=== PATIENT | female | born 1990 | race Caucasian/White ===

== ENCOUNTER 2025-01-13 07:46 | Outpatient (CLI) | payer OTHER, SELFPAY ==
--- OUTSIDE RECORDS SUMMARY | 2025-01-13 08:00 | XMS_ITS | Data Portability ---
Author Organization [facility] [place] Address [address] [place] [address] Care Team Providers Care Physical Education Aide Name Role Phone SUNNY FELIX Primary Care Provider [phone] Assessment No assessment recorded. Plan of Treatment Reminders Order Date Submit Date Provider Last Modified By Organization Details Last Modified Time Details Appointments SURG Salpingec chai 2024 10:30A Eduar HIGHTOWER MD Not available Not available Not available SURG POST OP 2024 03:15P Eduar HIGHTOWER MD Not available Not available Not available Lab None recorded. Referral None recorded. Procedures None recorded. Surgeries salpingec chai, laparosco pic (SURG) 01/20/ 025 [facility], [facility] [address], [address], 12/14/2024 16:35:58 Imaging None recorded. Medication Orders None recorded. Patient TargetsNo targets recorded. Patient InstructionsNo instructions recorded. Reason for Referral None Reported. Procedures Surgical History Date Name Laterality Status Provider Name and Address Organization Details Recorded Time Date of Last Pap Smear completed [facility] 12/09/2024 17:15:12 Orthopedic Surgery completed [facility] 12/09/2024 17:15:12 Imaging Results None recorded. Procedure Notes None recorded. Medical Equipment None Reported. Allergies Allergen ID Allergen Name Allergen Category Reaction Reaction Severity Criticality Documentation Date Start Date Code Code System Note Provider Name and Address Organization Details Recorded Time 28053 Product containin g penicilli n (product) medicatio n anaphylax is severe Not available 12/09/20242004 05583 8001 SNOMED Darlyn Andrade [facility] 17:15:12 18690 Penicilli n Not available anaphylax is severe Not available 12/09/2024 29053 RxNorm Darlyn Andrade [facility] 17:15:12 Medications Name Sig Start Date Stop Date Status Note LastModified by Organization Details LastModified Time metformin 500 mg tablet 12/09 completed Not Available Not Available Not Available lisinopril 20 mg-hydrochl orothiazide 12.5 mg tablet TAKE 1 TABLET BY MOUTH EVERY DAY 12/09 completed Not Available Not Available Not Available lisinopril 20 mg tablet TAKE 1 TABLET BY MOUTH EVERY DAY 2024 active Not Available Not Available Not Avai lable doxycycline monohydrate 100 mg capsule TAKE 1 CAPSULE BY MOUTH TWICE A DAY FOR 7 DAYS 12/09 completed Not Available Not Available Not Available lisinopril 20 mg-hydrochl orothiazide 25 mg tablet TAKE ONE TABLET BY MOUTH DAILY FOR HYPERTENS ION active Not Available Not Available No t Available metformin ER 500 mg tablet,exte nded release 24 hr TAKE 1 TABLET BY MOUTH TWICE A DAY active Not Available Not Available No t Available Vitals Date Recorded Body height Body mass index (BMI) Body weight Systolic blood pressure Diastolic blood pressure Provider Name and Address Organization Details Last Updated DateTime 12/09/2024 147.32 cm 60 kg/m2 943626.0 1 g 150 mm[Hg] 95 mm[Hg] Darlyn Andrade [facility] 17:14:39 Social History Question Answer Notes LastModified by Organizat ion Details LastModified Time Do You Have An Advance Directive? No [email or web address] Information n ot available 12/09/2024 What Is Your Level Of Alcohol Consumption? None [email or web address] Information not available 12/09/2024 Are You Blind Or Do You Have Difficulty Seeing? No Information n ot available 12/09/2024 What Is Your Level Of Caffeine Consumption? Occasional [email or web address] Information not available 12/09/2024 How Much Tobacco Do You Chew? None [email or web address] Information not available 12/09/2024 In The 14 Days Before Symptom Onset, Have You Had Close Contact With A Laboratory-confirm ed COVID-19 While That Case Was Ill? No [email or web address] Information n ot available 12/09/2024 In The 14 Days Before Symptom Onset, Have You Had Close Contact With A Person Who Is Under Investigation For COVID-19 While That Person Was Ill? No [email or web address] Information not available 12/09/2024 Have You Been To An Area Known To Be High Risk For COVID-19? No Information not available 12/09/2024 Are You Deaf Or Do You Have Serious Difficulty Hearing? No Information not available 12/09/2024 What Type Of Diet Are You Following? REGULAR [email or web address] Information n ot available 12/09/2024 What Is The Highest Grade Or Level Of School You Have Completed Or The Highest Degree You Have Received? 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 No [email or web address] Information not available 12/09/2024 Do You Use Protection During Sex? Always [email or web address] Information not available 12/09/2024 Do You Use Your Seat Belt Or Car Seat Routinely? Yes [email or web address] Information not available 12/09/2024 Do You Have Smoke And Carbon Monoxide Detectors In Your Home? Yes [email or web address] Information not available 12/09/2024 How Much Tobacco Do You Smoke? No [email or web address] Information not available 12/09/2024 Do You Feel Stressed (tense, Restless, Nervous, Or Anxious, Or Unable To Sleep At Night)? FH1977-0 [email or web address] Information not available 12/09/2024 Do You Use Any Illicit Or Recreational Drugs? No [email or web address] Information not available 12/09/2024 Do You Use Sunscreen Routinely? Yes [email or web address] Information not available 12/09/2024 Have You Used IV Drugs? No [email or web address] Information not available 12/09/2024 Sex: Unknown Functional Status Question Answer Note LastModified by Organizat ion Details LastModified Time Are you able to walk? YESWOREST [email or web address] Information not available 12/09/2024 What is your exercise level? Occasional [email or web address] Information not available 12/09/2024 Mental Status None recorded. Family History Relationship Description Onset Age of this Age Resolved Age Notes LastModified by Organization Details LastModified Time Paternal Uncle Myocardial infarction [email or web address] Not available 12/09 17:15:12 Maternal Uncle Myocardial infarction Not available 12/09 17:15:12 Maternal Uncle Diabetes mellitus [email or web address] Not available 2024 17:15:12 Father Myocardial infarction [email or web address] Not available 12/09 17:15:12 Father Depressive disorder [email or web address] Not available 2024 17:15:12 Father Heart disease [email or web address] Not available 2024 17:15:12 Paternal Grandmother Malignant tumor of breast Not available 2024 17:15:12 Paternal Grandmother Malignant neoplasm of ovary [email or web address] Not available 2024 17:15:12 Mother Myocardial infarction [email or web address] Not available 12/09 17:15:12 Mother Malignant tumor of breast [email or web address] Not available 2024 17:15:12 Mother Depressive disorder [email or web address] Not available 2024 17:15:12 Mother Pre-eclampsi a [email or web address] Not available 2024 17:15:12 Mother Heart disease Not available 2024 17:15:12 Mother Diabetes mellitus Not available 2024 17:15:12 Maternal Aunt Myocardial infarction [email or web address] Not available 12/09 17:15:12 Maternal Aunt Diabetes mellitus [email or web address] Not available 2024 17:15:12 Maternal Grandmother Myocardial infarction Not available 12/09 17:15:12 Maternal Grandmother Malignant tumor of breast [email or web address] Not available 2024 17:15:12 Maternal Grandmother Heart disease [email or web address] Not available 2024 17:15:12 Maternal Grandmother Diabetes mellitus [email or web address] Not available 2024 17:15:12 Sister Pre-eclampsi a [email or web address] Not available 2024 17:15:12 Sister Diabetes mellitus [email or web address] Not available 2024 17:15:12 Maternal Grandfather Myocardial infarction [email or web address] Not available 12/09 17:15:12 Maternal Grandfather Heart disease [email or web address] Not available 2024 17:15:12 Medical History Condition Response Acid Reflux (GERD) Y Hypertension Y Gynecological History Statement/Question Response Abnormal Pap Y Date of LMP On BCP's at Conception? N N Was last menstrual period normal Y STIs/STDs N HPV Vaccine N Duration of Flow (days) 6 Current Control Method Implant Date of control 11/21/2022 Frequency of Cycle (Q days) 25 Sexually Active? Y Unknown Age of first menstrual cycle 10 Date of Last Pap Smear 10/10/2022 Sexual Problems? N Desired Control Method Hysterectom y LMP Unknown N Obstetrics History GPAL:G 0 P 0 0 0 0 Past Encounters Encounter ID Performer Location Encounter Start Date Encounter Closed Date Diagnosis/Indication Diagnosis SNOMED-CT Code Diagnosis ICD10 Code Diagnosis Note [id number] Jake Hightower MD [place] [address] [address] 12/09/2024 16:29:30 12/10/2024 10:34:38 Female sterilization 44126719 Z30.2 This patient presents for female sterilizat ion. The patient desires tubal ligation. She is certain that she no longer wants to be fertile. We discussed sterilizat ion in detail. I described the procedure to the patient in detail. I informed her that we remove the tubes entirely in a. We discussed alternativ es. The patient knows they are highly effective reversible options. She understand s that the Salpingect dick n is permanent. We discussed failure rate. She understand s there is reported failure rate to salpingect dick.. As described salpingect dick and removal of the entire tube. I discussed the reduction in ovarian cancer risk. The patient understand s and is ready to proceed with laparoscop ic bilateral tubal ligation. She understand s the tubes We will be removed. She return for informed consent process. Her surgery will be scheduled. I spent more than 30 minutes on this patient's care in total. We agreed to perform surgery. Health Concerns Section Related Observation LastModified by Organization Detai ls LastModified Time None Recorded Concern Status LastModified by Organization Details LastModified Time None Recorded Advance Directives Directive N: Payers Encounter Date Sequence Insurance Name Policy Number Policy Ruvalcaba Covered Member ID Ruvalcaba Member ID Guarantor Name 12/09/2024 1 [employer]EF[employer] (PPO) [id number] Priyanka Nice [id number] Priyanka Nice Notes Date Note Type Note Provider Name and Address Organization Details Recorded Time 12/09/2024 text/html This patient presents for female sterilization. The patient desires tubal ligation. She is certain that she no longer wants to be fertile. We discussed sterilization in detail. I described the procedure to the patient in detail. I informed her that we remove the tubes entirely in a. We discussed alternatives. The patient knows they are highly effective reversible options. She understands that the Salpingectomy n is permanent. We discussed failure rate. She understands there is reported failure rate to salpingectomy.. As described salpingectomy and removal of the entire tube. I discussed the reduction in ovarian cancer risk. The patient understands and is ready to proceed with laparoscopic bilateral tubal ligation. She understands the tubes We will be removed. She return for informed consent process. Her surgery will be scheduled. Jake Hightower MD [address], [place], [address], [facility] 12/10/2024 10:14:08 OBGyn Episode No OBEpisode recorded.
--- OUTSIDE RECORDS SUMMARY | 2025-01-13 08:00 | XMS_ITS | Clinical Summary ---
Author Organization [facility] Address [address] [place] [address] Phone Care Team Providers Care Supervisor Cemetery Workers Name Role Phone Boubacar Jacquelin Christ MONTESINOS CNP Primary Care Provider [phone] Allergies Active Allergy Reactions Criticality Noted Date Comments Penicillins Other (see Comments) 11/20/2024 Medications VITAMIN E PO Take 1,000 mL by mouth once. Active famotidine (PEPCID) 20 MG Tablet Take 20 mg by mouth 2 times daily. Active etonogestrel (NEXPLANON) 68 MG Implant by Subcutaneous route once. Active metFORMIN (GLUCOPHAGE-XR) 500 MG TABLET SR 24 HR Take 1 Tablet by mouth 2 times daily. 90 Tablet 5 Active lisinopril (PRINIVIL, ZESTRIL) 20 MG Tablet Take 1 Tablet by mouth daily. 90 Tablet 5 Active lisinopril-hydr oCHLOROthiazide (PRINZIDE, ZESTORETIC) 20-12.5 MG Tablet Take 1 Tablet by mouth daily. 90 Tablet 5 Active Active Problems No known active problems Encounters Date Type Department Care Team Description 12/28/2024 Results Follow-Up [facility] - Family [facility] [address] [place] [address] Boubacar Jacquelin Christ, HANANE MONTESINOS LIPID PANEL, HEMOGLOBIN A1C W/ ESTIMATED GLUCOSE, THYROXINE (T4) FREE, Additional followed-up results: 4 12/23/2024 Travel 12/11/2024 [facility]ill [facility] [address] [place] [phone] Jacquelin Hamlin APRN, CNP Medication Refill 11/20/2024 10:30 AM CDT [facility] [place] [address] Jacquelin Hamlin APRN, HANANE Encounter for preventative adult health care exam with abnormal findings (Primary Dx); Gastroesophageal reflux disease with esophagitis without hemorrhage; Primary hypertension; Class 3 severe obesity with body mass index (BMI) of 60.0 to 69.9 in adult, unspecified obesity type, unspecified whether serious comorbidity present (HCC) Discharge Disposition: Discharged to home or Selfcare 11/20/2024 Travel 11/09/2024 [facility] [place] [address] Jacquelin Hamlin, HANANE MONTESINOS from Last 3 Months Immunizations Immunization Administration Dates Next Due DTP Vaccine 05/11/1994, 3,09/11/1991,1990,03/27/1991 Hib Vaccine,unspecified Formulation 09/11/1991,1 ,03/27/1991 Influenza,Split Virus,Trivalent,Injectable,PF 11/20/2024 MMR Vaccine 05/11/1994,09/11/1991 OPV 05/11/1994, 3,09/11/1991,1990,03/27/1991 Family History Medical History Relation Name Comments Hypertension Father Diabetes Mother Diabetes Sister Hypertension Sister Relation Name Status Comments Father Maternal Grandfather Maternal Grandmother Mother Paternal Grandfather Paternal Grandmother Sister Alive Social History Tobacco Use Types Packs/Day Years Used Date Smoking Tobacco: Never Smokeless Tobacco: Never Tobacco Cessation:Counseling Given: No PHQ-2 Answer Date Recorded Total Score - Questions 1-9 0 11/07 Sexually Active Control Partners Comments Yes Other Male Comments Unknown Sex and Gender Information Value Date Recorded Sex Assigned at Not on file Legal 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 Gender Identity Not on file Sexual Orientation Not on file Last Filed Vital Signs Vital Sign Reading Time Taken Comments Blood Pressure 130/80 11/20/2024 10:30 AM CDT Pulse 92 11/20/2024 10:30 AM CDT Temperature 36.3 C (97.3 F) 11/20/2024 10:30 AM CDT Respiratory Rate 16 11/20/2024 10:30 AM CDT Oxygen Saturation 99% 11/20/2024 10:30 AM CDT Inhaled Oxygen Concentration - - Weight 131.1 kg (289 lb) 11/20/2024 10:30 AM CDT Height 147.3 cm (4' 10 ) 11/20/2024 10:30 AM CDT Body Mass Index 60.4 11/20/2024 10:30 AM CDT Plan of Treatment Upcoming Encounters Date Type Department Care Team (Late st Contact Info) Description 05/24/2025 2:30 PM CDT Office Visit [facility] - Family [facility] [address] [place] [address] Boubacar, Jacquelin N, VP RESEARCH, PIPE CONNECTOR 2 [facility] [place] [place] [address] Health Maintenance Due Date Last Done Comments Hepatitis C Virus (HCV) Screening 1990 DTaP/Tdap/Td Immunization (5 - Tdap) 1997 05/11/1994, 09/21/1992, 09/11/1991, Additional history exists Hepatitis B Immunization (1 of 3 - 19+ 3-dose series) 2009 Pap Smear 2011 HPV/Cotest 2020 SARS-COV-2 Immunization ( season) 2024 Cervical Cancer Screening (CCS) 01/07/2027 Postponed from 2020 (Provider Discretion) Respiratory Syncytial Virus (RSV) Immunization (Adult) (1 - 1-dose 75+ series) 2065 Influenza Immunization Completed 11/20/2024 Human Papillomavirus (HPV) Immunization Aged Out No longer eligible based on patient's age to complete this topic Meningococcal Immunization (ACWY) Aged Out No longer eligible based on patient's age to complete this topic Pneumococcal Immunization Combined Aged Out No longer eligible based on patient's age to complete this topic Rotavirus Immunization Aged Out No lo nger eligible based on patient's age to complete this topic Procedures Procedure Name Priority Date/Time Associated Diagnosis Comments CBC WITH AUTO DIFFERENTIAL Routine 12/23/2024 8:08 AM CDT Encounter for preventative adult health care exam with abnormal findings THYROID SCREEN WITH REFLEX Routine 12/23/2024 8:08 AM CDT Encounter for preventative adult health care exam with abnormal findings VITAMIN D, 25 HYDROXY TOTAL Routine 12/23/2024 8:08 AM CDT Encounter for preventative adult health care exam with abnormal findings COMPLETE BLOOD COUNT (CBC) WITH DIFF Routine 12/23/2024 8:08 AM CDT Encounter for preventative adult health care exam with abnormal findings CMP (COMPREHENSIVE METABOLIC PANEL) Routine 12/23/2024 8:08 AM CDT Encounter for preventative adult health care exam with abnormal findings THYROXINE (T4) FREE Routine 12/23/2024 8 :08 AM CDT Encounter for preventative adult health care exam with abnormal findings HEMOGLOBIN A1C W/ ESTIMATED GLUCOSE Routine 12/23/2024 8:08 AM CDT Gastroesophageal reflux disease with esophagitis without hemorrhage LIPID PANEL Routine 12/23/2024 8:08 AM CDT Encounter for preventative adult health care exam with abnormal findings THYROID SCREEN WITH REFLEX Routine 12/23/2024 8:08 AM CDT Encounter for preventative adult health care exam with abnormal findings from Last 3 Months Results * VITAMIN D, 25 HYDROXY TOTAL (12/23/2024 8:08 AM CDT) VITAMIN D, 25 HYDROX 21.3 ng/mL 12/23/2024 10:46 AM CDT [facility] Blood Venipuncture / Unknown 12/23/2024 8:08 AM CDT 12/23/2024 9:23 AM CDT N[facility]ative [facility] - 12/23/2024 10:46 AM CDT Published reference ranges for Vitamin D vary depending on time and place and method of testing, and on patient's age, sex, ethnicity and levels of other measured analytes such as parathormone, calcium and phosphorus. The result should be evaluated in conjunction with clinical findings and suspicions. [place] [employer] and Endocrine Clinical Practice Guidelines: Status Vitamin D levels (ng/mL) Deficient <=20 At risk of inadequacy 21-29 Sufficient 30-100 Centers of Disease Control and Prevention Guidelines: Status Vitamin D levels (ng/mL) Deficient <13 At risk of inadequacy 13-19 Sufficient 20-50 Possibly harmful >50 References: [place] [employer], 2010 Dietary reference intakes for calcium and vitamin D. [place]: The National AcademResearch & Innovation Press. Gabriela M, Aleks N, Michael PEPPER, et al., Evaluation, treatment, and prevention of Vitamin D deficiency: an Endocrinology Clinical Practice Guideline. JCEM 2011 96: 7 0887-8087. Brandt A, Ke C, Benja D, et al., Vitamin D Status: [place], 3185-4559, [facility] data brief, no. 59, MD [place]: National Center for Health Statistics. 2011. December N Boubacar MONTESINOS, PIPE CONNECTOR CHEMISTRY ORDERABLES Radhika l Result Performing Organization Address City/[facility] Co de Phone Number [facility] [address] [place] [address] * THYROID SCREEN WITH REFLEX (12/23/2024 8:08 AM CDT) TSH 2.107 0.300 - 5.000 mIU/L 12/23/2024 10:47 AM CDT [facility] Blood Venipuncture / Unknown 12/23/2024 8:08 AM CDT 12/23/2024 9:24 AM CDT December Boubacar MIXONN, PIPE CONNECTOR CHEMISTRY ORDERABLES Radhika l Result Performing Organization Address City/[facility]/ZIP Co de Phone Number [facility] [address] [place] [address] * HEMOGLOBIN A1C W/ ESTIMATED GLUCOSE (12/23/2024 8:08 AM CDT) Pathologist [facility] HGB-A1C 5.5 4.0 - 6.0 % 12/23/2024 10:02 AM CDT [facility] Est Average Glucose 111.2 mg/dL 12/23/2024 10:02 AM CDT [facility] Blood Venipuncture / Unknown 12/23/2024 8:08 AM CDT 12/23/2024 9:23 AM CDT Narrative [facility] - 12/23/2024 10:02 AM CDT HEMOGLOBIN A1C: DIABETIC PATIENTS: WELL-CONTROLLED: 6.2 - 7.0 INTERMEDIATE WELL-CONTROLLED: 7.0 - 9.0 POORLY-CONTROLLED: >9.0 Specimens containing greater than 5% of Hemoglobin F may result in lower than expected % HbA1C results. December N Oehl VP RESEARCH, PIPE CONNECTOR CHEMISTRY ORDERABLES Radhika l Result Performing Organization Address City/[facility]/ZIP Co de Phone Number [facility] [address] [place] [address] * (ABNORMAL) CBC WITH AUTO DIFFERENTIAL (12/23/2024 8:08 AM CDT) Pathologist [facility] WBC 11.11 4.00 - 12.00 10(3)/mcL 12/23/2024 9:42 AM CDT [facility] RBC 4.93 3.80 - 5.30 10(6)/mcL 12/23/2024 9:42 AM CDT [facility] HEMOGLOBIN (HGB) 14.4 12.0 - 15.8 g/dL 12/23/2024 9:42 AM CDT [facility] HEMATOCRIT (HCT) 42.2 36.0 - 47.0 % 12/23/2024 9:42 AM CDT [facility] MCV 85.6 82.0 - 96.0 fL 12/23/2024 9:42 AM CDT [facility] MCH 29.2 26.0 - 34.0 pg 12/23/2024 9:42 AM CDT [facility] MCHC 34.1 31.0 - 36.0 g/dL 12/23/2024 9:42 AM CDT [facility] PLATELET COUNT 343 140 - 440 10(3)/mcL 12/23/2024 9:42 AM CDT [facility] RDW 13.0 11.8 - 15.5 % 12/23/2024 9:42 AM CDT [facility] MPV 10.1 9.7 - 12.4 fL 12/23/2024 9:42 AM CDT [facility] NEUTROPHILS 59.9 47.0 - 73.0 % 12/23/2024 9:42 AM CDT [facility] LYMPHOCYTES 31.1 18.0 - 42.0 % 12/23/2024 9:42 AM CDT [facility] MONOCYTES 6.4 4.0 - 12.0 % 12/23/2024 9:42 AM CDT [facility] EOSINOPHILS 2.1 0.0 - 5.0 % 12/23/2024 9:42 AM CDT [facility] BASOPHILS 0.5 0.0 - 1.0 % 12/23/2024 9:42 AM CDT [facility] ABSOLUTE NEUTROPHILS 6.66 1.60 - 7.70 10(3)/mcL 12/23/2024 9:42 AM CDT [facility] ABSOLUTE LYMPHOCYTES 3.45(H) 1.30 - 3.20 10(3)/mcL 12/23/2024 9:42 AM CDT [facility] ABSOLUTE MONOCYTES 0.71 0.20 - 1.00 10(3)/mcL 12/23/2024 9:42 AM CDT [facility] ABSOLUTE EOSINOPHIL 0.23 0.00 - 0.40 10(3)/mcL 12/23/2024 9:42 AM CDT [facility] ABSOLUTE BASOPHILS 0.06 0.00 - 0.10 10(3)/mcL 12/23/2024 9:42 AM CDT [facility] NRBC PER 100 WBC 0 12/24/19 9:42 AM CDT [facility] Blood Venipuncture / Unknown 12/23/2024 8:08 AM CDT 12/23/2024 9:23 AM CDT December N Boubacar MONTESINOS PIPE CONNECTOR HEMATOLOGY ORDERABLES Fin al Result [facility] [address] [place] [address] * THYROXINE (T4) FREE (12/23/2024 8:08 AM CDT) T4 FREE 0.9 0.7 - 1.9 ng/dL 12/23/2024 10:42 AM CDT [facility] Blood Venipuncture / Unknown 12/23/2024 8:08 AM CDT 12/23/2024 9:23 AM CDT december N Boubacar MONTESINOS PIPE CONNECTOR CHEMISTRY ORDERABLES Radhika l Result [facility] [address] [place] [address] * (ABNORMAL) LIPID PANEL (12/23/2024 8:08 AM CDT) CHOLESTEROL 166 <200 mg/dL 12/23/2024 10:25 AM CDT [facility] TRIGLYCERIDES 170(H) <150 mg/dL 12/23/2024 10:25 AM CDT [facility] HDL CHOLESTEROL 43 >40 mg/dL 10:25 AM CDT [facility] LDL 89 <130 mg/dL 12/23/2024 10:25 AM CDT [facility] VLDL 34 10 - 50 mg/dL 12/23/2024 10:25 AM CDT [facility] CHOL/HDL RATIO 3.9 0.0 - 4.4 12/23/2024 10:25 AM CDT [facility] NON-HDL CHOLESTEROL 123 <130 mg/dL 12/23/2024 10:25 AM CDT [facility] IS THE PATIENT REQUIRED TO BE FASTING? Yes 12/23/2024 10:25 AM CDT [facility] HAS THE PATIENT BEEN FASTING? Yes 12/23/2024 10:25 AM CDT [facility] Blood Venipuncture / Unknown 12/23/2024 8:08 AM CDT 12/23/2024 9:23 AM CDT december Oehl VP RESEARCH, PIPE CONNECTOR CHEMISTRY ORDERABLES Radhika l Result [facility] [address] [place] [address] * CMP (COMPREHENSIVE METABOLIC PANEL) (12/23/2024 8:08 AM CDT) SODIUM 137 136 - 145 mmol/L 12/23/2024 10:25 AM CDT [facility] POTASSIUM 4.0 3.5 - 5.1 mmol/L 12/23/2024 10:25 AM CDT [facility] CHLORIDE 107 98 - 107 mmol/L 12/23/2024 10:25 AM CDT [facility] CO2, VENOUS 23 22 - 30 mmol/L 12/23/2024 10:25 AM CDT [facility] ANION GAP 11.0 <18.0 mmol/L 12/23/2024 10:25 AM CDT [facility] GLUCOSE 85 70 - 99 mg/dL 12/23/2024 10:25 AM CDT [facility] BUN 8 5 - 18 mg/dL 12/23/2024 10:25 AM [facility] CREATININE, BLOOD 0.60 0.60 - 1.00 mg/dL 12/23/2024 10:25 AM T [facility] BUN/CREATININE RATIO 13 12 - 20 ratio 12/23/2024 10:25 AM [facility] TOTAL PROTEIN 7.5 6.0 - 8.0 g/dL 12/23/2024 10:25 AM T [facility] ALBUMIN 3.9 3.5 - 5.0 g/dL 12/23/2024 10:25 AM [facility] A/G RATIO 1.1 1.0 - 2.2 12/23/2024 10:25 AM [facility] CALCIUM 9.1 8.7 - 10.5 mg/dL 12/23/2024 10:25 AM [facility] T BILI 0.9 0.2 - 1.2 mg/dL 12/23/2024 10:25 AM [facility] SGOT (AST) 23 <43 U/L 12/23/2024 10:25 AM [facility] SGPT (ALT) 23 <56 U/L 12/23/2024 10:25 AM [facility] ALKALINE PHOSPHATASE 71 40 - 150 U/L 12/23/2024 10:25 AM [facility] IS THE PATIENT REQUIRED TO BE FASTING? No 12/23/2024 10:25 AM [facility] GFR, ESTIMATED >60 >=60 12/23/2024 10:25 AM [facility] Comment: Creatinine Clearance is the preferred criteria for selecting drug dose adjustments in renally impaired patients. The GFR is provided as additional pertinent clinical information. GFR is reported in mL/min/1.73 sq m. Calculation based on the Chronic Kidney Disease Epidemiology Collaboration (CKD- EPI) equation refit without adjustment for race. GFR, EST. >60 >=60 025 10:25 AM [facility] GFR, EST. NONAFRICAN >60 >=60 12/23/2024 10:25 AM CDT [facility] Blood Venipuncture / Unknown 12/23/2024 8:08 AM CDT 12/23/2024 9:23 AM CDT December Boubacar MONTESINOS CNP CHEMISTRY ORDERABLES Radhika l Result [facility] [address] [place] [address] from Last 3 Months Insurance [employer] Care Teams Supervisor Cemetery Workers Relationship Specialty Start Date End Date Boubacar December Christ, HANANE MONTESINOS 2 [facility] [address] [address] PCP - General Advanced Practice Nurse 11/20/24
--- NOTE | 2025-01-13 08:09 | ECG_ITS ---
Test Date: 2025-01-13 08:16:40 Measurements Intervals [place] Rate: 88 P: 37 [place]: 139 QRS: 4 QRSD: 92 T: -4 QT: 368 QTc: 447 Interpretive Statements SINUS RHYTHM No previous ECG available for comparison Electronically Signed On 01-13-2025 14:03:04 CDT by Kayla Ren M.D.
== END 2025-01-13 07:47 | disposition home or self-care (01) ==
LOC: ANHSURGERY 07:56
PROVIDERS: Visit Provider Obstetrics & Gynecology
DX: I10 Essential (primary) hypertension (principal)
CPT/HCPCS: 93005

== ENCOUNTER 2025-01-20 00:44 | Day surgery (SDC) | payer OTHER, SELFPAY ==
[2025-01-07 14:58] VITALS: BMI 59.6
--- NOTE | 2025-01-07 15:07 | PC.NURSE ---
Report to the Outpatient Waiting Room, entrance under the green pavilion located off [facility], at time _0830_ on date _[id number]_. Planned Procedure Time: _1030_. Time changes happen often and if your time is changed the preop area will call you the afternoon before. - You and your visitor will be asked to self-screen and do not enter if you have any COVID symptoms. Please call surgeon if you need to reschedule. - A mask is optional within the hospital at this time. Patients may have clear liquids (water, carbonated beverages, clear teas, apple juice) until 3 hours prior to surgery with a maximum of 20 ounces. - No food from midnight until time of surgery and no smoking, or chewing tobacco (or any form of nicotine). No chewing gum, candy or mints. Take only the following medications with a SIP of water on the morning of surgery: __None___ DO NOT STOP ANY OF YOUR OTHER PRESCRIPTION MEDICATIONS PRIOR TO SURGERY EXCEPT THE FOLLOWING Hold all vitamins and supplements for 3 days per anesthesiologist. Medications to discontinue per physician Date to take last gjvt___[phone]___ Please no make-up, nail irish, hairspray, perfume, deodorant, or body powder the day of surgery. No jewelry (including any body piercings) or valuables the day of surgery, leave them at home. Please take a shower or bath the night before, or the morning of, surgery with an antibacterial soap. Wear comfortable, loose fitting clothing. - Jewelry must be removed prior to entering the operating room. Rings and piercings that are not removed may be cut off. - The hospital will not accept responsibility for valuables. - Please leave all valuables, including medications, at home the day of surgery. If you are going home after surgery, a licensed truck driver supervisor must drive you home. - NO public transportation without another adult if you receive anesthesia. - We recommend that an adult stay with you for 24 hours following discharge. - We also recommend that you do not drive, make important decision, drink alcoholic beverages, or take any drugs that were not prescribed by your health care provider for at least 24 hours after your discharge time. Follow any additional instructions given to you from your surgeon. Telephone instructions given to __Tia__and asked if any additional questions and then verbalized understanding. Patient advised to call surgeon office or pre surgery nurse liaison [phone] if any additional questions.
[2025-01-20] VITALS (10 sets, daily range): BP systolic 127–171; BP diastolic 87–116; PULSE 53–91; RESP 16–27; TEMP 36.2–36.4; O2SAT 96–98
--- OUTSIDE RECORDS SUMMARY | 2025-01-20 00:47 | XMS_ITS | Data Portability ---
Author Organization [facility] [place] Address [address] [place] [address] Care Team Providers Care Operational Risk Analyst Name Role Phone SUNNY FELIX Primary Care Provider Assessment No assessment recorded. Plan of Treatment [...] recorded. Surgeries salpingec chai, laparosco pic (SURG) 2024 025 [facility] [address], [address], 12/14/2024 16:35:58 Imaging None recorded. Medication Orders None recorded. Patient TargetsNo targets recorded. Patient InstructionsNo instructions recorded. Reason for Referral None Reported. Procedures Surgical History Date Name Laterality Status Provider Name and Address Organization Details Recorded Time Date of Last Pap Smear completed [facility] 12/09/2024 17:15:12 Orthopedic Surgery completed [facility] 12/09/2024 17:15:12 Imaging Results None recorded. Procedure Notes None recorded. Medical Equipment None Reported. Allergies Allergen ID Allergen Name Allergen Category Reaction Reaction Severity Criticality Documentation Date Start Date Code Code System Note Provider Name and Address Organization Details Recorded Time 64266 Product containin g penicilli n (product) medicatio n anaphylax is severe Not available 12/09/20242004 74033 8001 SNOMED Darlyn Andrade [facility] 17:15:12 80311 Penicilli n Not available anaphylax is severe Not available 12/09/2024 97727 RxNorm Darlyn Andrade [facility] 17:15:12 Medications Name Sig Start Date Stop Date Status Note LastModified by Organization Details LastModified Time metformin 500 mg tablet 12/09 completed Not Available Not Available Not Available lisinopril 20 mg-hydrochl orothiazide 12.5 mg tablet TAKE 1 TABLET BY MOUTH EVERY DAY active Not Available Not Available No t Available lisinopril 20 mg tablet TAKE 1 TABLET BY MOUTH EVERY DAY active Not Available Not Available No t Available doxycycline monohydrate 100 mg capsule TAKE 1 [...] Updated DateTime 12/09/2024 147.32 cm 60 kg/m2 460511.0 1 g 150 mm[Hg] 95 mm[Hg] Darlyn Andrade [facility] 17:14:39 Social History Question Answer Notes LastModified by Organizat ion Details LastModified Time Do You Have An Advance Directive? No [email or web address] Information n ot available 12/09/2024 Are You Blind Or Do You Have Difficulty Seeing? No [email or web address] Information n ot available 12/09/2024 What Is Your Level Of Caffeine Consumption? Occasional [email or web address] Information not available 12/09/2024 How Much Tobacco Do You Chew? None [email or web address] Information not available 12/09/2024 In The 14 Days Before Symptom Onset, Have You Had Close Contact With A Laboratory-confirm ed COVID-19 While That Case Was Ill? No [email or web address] Information n ot available 12/09/2024 In The 14 Days Before Symptom Onset, Have You Had Close Contact With A Person Who Is Under Investigation For COVID-19 While That Person Was Ill? No [email or web address] Information not available 12/09/2024 Have You Been To An Area Known To Be High Risk For COVID-19? No [email or web address] Information not available 12/09/2024 Are You Deaf Or Do You Have Serious Difficulty Hearing? No Information not available 12/09/2024 What Type Of Diet Are You Following? REGULAR [email or web address] Information n ot available 12/09/2024 What Is The Highest Grade Or Level Of School You Have Completed Or The Highest Degree You Have Received? [id number] [email or web address] Information not available 12/09/2024 Are There Any Guns Present In Your Home? No [email or web address] Information not available 12/09/2024 Do You Use Protection During Sex? Always Information not available 12/09/2024 Do You Use Your Seat Belt Or Car Seat Routinely? Yes [email or web address] Information not available 12/09/2024 Do You Have Smoke And Carbon Monoxide Detectors In Your Home? Yes [email or web address] Information not available 12/09/2024 How Much Tobacco Do You Smoke? No [email or web address] Information not available 12/09/2024 Do You Use Sunscreen Routinely? Yes [email or web address] Information not available 12/09/2024 Have You Used IV Drugs? No [email or web address] Information not available 12/09/2024 Sex: Unknown Functional Status Question Answer Note LastModified by Organizat ion Details LastModified Time Do you use any illicit or recreational drugs? No [email or web address] Information not available 12/09/2024 What is your level of alcohol consumption? None [email or web address] Information not available 12/09/2024 Are you able to walk? 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 Occasional Information not available 12/09/2024 Mental Status Question Answer Note LastModified by Organization D etails LastModified Time Do you feel stressed (tense, restless, nervous, or anxious, or unable to sleep at night)? [id number] Information not available 12/09/2024 Family History Relationship Description Onset Age of this Age Resolved Age Notes LastModified by Organization Details LastModified Time Paternal Uncle Myocardial infarction [email or web address] Not available 12/09 17:15:12 Maternal Uncle Myocardial infarction [email or web address] Not available 12/09 17:15:12 Maternal Uncle Diabetes mellitus [email or web address] Not available 2024 17:15:12 Father Myocardial infarction Not available 12/09 17:15:12 Father Depressive disorder [email or web address] Not available 2024 17:15:12 Father Heart disease [email or web address] Not available 2024 17:15:12 Paternal Grandmother Malignant tumor of breast [email or web address] Not available 2024 17:15:12 Paternal Grandmother Malignant neoplasm of ovary [email or web address] Not available 2024 17:15:12 Mother Myocardial infarction [email or web address] Not available 12/09 17:15:12 Mother Malignant tumor of breast [email or web address] Not available 2024 17:15:12 Mother Depressive disorder [email or web address] Not available 2024 17:15:12 Mother Pre-eclampsi a [email or web address] Not available 2024 17:15:12 Mother Heart disease [email or web address] Not available 2024 17:15:12 Mother Diabetes mellitus Not available 2024 17:15:12 Maternal Aunt Myocardial infarction [email or web address] Not available 12/09 17:15:12 Maternal Aunt Diabetes mellitus [email or web address] Not available 2024 17:15:12 Maternal Grandmother Myocardial infarction [email or web address] Not available 12/09 17:15:12 Maternal Grandmother Malignant tumor of breast [email or web address] Not available 2024 17:15:12 Maternal Grandmother Heart disease [email or web address] Not available 2024 17:15:12 Maternal Grandmother Diabetes mellitus [email or web address] Not available 2024 17:15:12 Sister Pre-eclampsi a [email or web address] Not available 2024 17:15:12 Sister Diabetes mellitus [email or web address] Not available 2024 17:15:12 Maternal Grandfather Myocardial infarction [email or web address] Not available 12/09 17:15:12 Maternal Grandfather Heart disease [email or web address] Not available 2024 17:15:12 Medical History Condition [...] SNOMED-CT Code Diagnosis ICD10 Code Diagnosis Note [id number] Jake Hightower MD [place] [address] [address] 12/09/2024 16:29:30 12/10/2024 10:34:38 Female sterilization [id number] Z30.2 This patient presents for female sterilizat [...] 12/09/2024 1 [employer] - FCE BENEFITS (PPO) [id number] Priyanka Nice [id number] Priyanka Nice Notes Date Note Type Note [...] scheduled. Jake Hightower MD [address], [place], [address], [facility] 12/10/2024 10:14:08 OBGyn Episode No OBEpisode recorded.
--- OUTSIDE RECORDS SUMMARY | 2025-01-20 00:47 | XMS_ITS | Clinical Summary ---
Author Organization [facility] [place] Address [address] [place] [address] Phone Care Team Providers Care Wigs Salesperson Name Role Phone Boubacar Jacquelin Christ MONTESINOS CNP Primary Care Provider [phone] Allergies Active Allergy Reactions Criticality Noted Date [...] Department Care Team Description 12/28/2024 Results Follow-Up [facility] [place] [address] Boubacar Jacquelin Christ, HANANE MONTESINOS LIPID PANEL, HEMOGLOBIN A1C W/ ESTIMATED GLUCOSE, THYROXINE (T4) FREE, Additional followed-up results: 4 12/23/2024 Travel 12/11/2024 [facility]ill [facility] [address] [place] [id number] Jacquelin Hamlin APRN, CNP Medication Refill 11/20/2024 10:30 AM CDT [facility] [place] [address] Jacquelin Hamlin APRN, HANANE Encounter for preventative adult health care exam with abnormal findings (Primary Dx); Gastroesophageal reflux disease with esophagitis without hemorrhage; Primary hypertension; Class 3 severe obesity with body mass index (BMI) of 60.0 to 69.9 in adult, unspecified obesity type, unspecified whether serious comorbidity present (HCC) Discharge Disposition: Discharged to home or Selfcare 11/20/2024 Travel 11/09/2024 [facility]phone [facility] [place] [address] Jacquelin Hamlin, HANANE MONTESINOS from Last 3 [...] on file 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 [address] [place] [address] Health Maintenance Due Date Last Done Comments [...] AM CDT 12/23/2024 9:23 AM CDT Narrative [facility] - 12/23/2024 10:46 AM CDT Published reference ranges for Vitamin D vary depending on time and place and method of testing, and on patient's age, sex, ethnicity and levels of other measured analytes such as parathormone, calcium and phosphorus. The result should be evaluated in conjunction with clinical findings and suspicions. [employer] of [employer] and Endocrine Clinical Practice Guidelines: Status Vitamin D levels (ng/mL) Deficient <=20 At risk of inadequacy 21-29 Sufficient 30-100 Centers of Disease Control and Prevention Guidelines: Status Vitamin D levels (ng/mL) Deficient <13 At risk of inadequacy 13-19 Sufficient 20-50 Possibly harmful >50 References: [employer], 2010 Dietary reference intakes for calcium and vitamin D. [place]: The National AcademMirens Inc Press. Gabriela M, Aleks N, Michael PEPPER, et al., Evaluation, treatment, and prevention of Vitamin D deficiency: an Endocrinology Clinical Practice Guideline. JCEM 2011 96: 7 8281-6333. Brandt A, Ke C, Benja D, et al., Vitamin D Status: [place], 4385-9668, [facility] data brief, no. 59, MD [place]: National Center for Health Statistics. 2011. December N Boubacar MONTESINOS, CANE CUTTER CHEMISTRY ORDERABLES Radhika l Result Performing Organization Address City/[facility] Co de Phone Number [facility] [place] [address] * THYROID SCREEN WITH REFLEX (12/23/2024 8:08 AM CDT) TSH 2.107 0.300 - 5.000 mIU/L 12/23/2024 10:47 AM CDT [facility] Blood Venipuncture / Unknown 12/23/2024 8:08 AM CDT 12/23/2024 9:24 AM CDT December Boubacar MIXONN, CANE CUTTER CHEMISTRY ORDERABLES Radhika l Result Performing Organization Address City/[facility]/ZIP Co de Phone Number [facility] [place] [address] * HEMOGLOBIN A1C W/ ESTIMATED GLUCOSE (12/23/2024 8:08 AM CDT) Pathologist [facility] HGB-A1C 5.5 4.0 - 6.0 % 12/23/2024 10:02 AM CDT [facility] Est Average Glucose 111.2 mg/dL 12/23/2024 10:02 AM CDT [facility] Blood Venipuncture / Unknown 12/23/2024 8:08 AM CDT 12/23/2024 9:23 AM CDT Narrative [facility] - 12/23/2024 10:02 AM CDT HEMOGLOBIN A1C: DIABETIC PATIENTS: WELL-CONTROLLED: 6.2 - 7.0 INTERMEDIATE WELL-CONTROLLED: 7.0 - 9.0 POORLY-CONTROLLED: >9.0 Specimens containing greater than 5% of Hemoglobin F may result in lower than expected % HbA1C results. December N Oehl POWER TECHNICIAN, CANE CUTTER CHEMISTRY ORDERABLES Radhika l Result Performing Organization Address City/[facility]/ZIP Co de Phone Number [facility] [address] [place] [address] * (ABNORMAL) CBC WITH AUTO DIFFERENTIAL (12/23/2024 8:08 AM CDT) Pathologist [facility] WBC 11.11 4.00 - 12.00 10(3)/mcL 12/23/2024 9:42 AM CDT [facility] RBC 4.93 3.80 - 5.30 10(6)/mcL 12/23/2024 9:42 AM CDT [facility] HEMOGLOBIN (HGB) 14.4 12.0 - 15.8 g/dL 12/23/2024 9:42 AM CDT [facility] HEMATOCRIT (HCT) 42.2 36.0 - 47.0 % 12/23/2024 9:42 AM CDT [facility] MCV 85.6 82.0 - 96.0 fL 12/23/2024 9:42 AM CDT [facility] MCH 29.2 26.0 - 34.0 pg 12/23/2024 9:42 AM CDT [facility] MCHC 34.1 31.0 - 36.0 g/dL 12/23/2024 9:42 AM CDT [facility] PLATELET COUNT 343 140 - 440 10(3)/mcL 12/23/2024 9:42 AM CDT [facility] RDW 13.0 11.8 - 15.5 % 12/23/2024 9:42 AM CDT [facility] MPV 10.1 9.7 - 12.4 fL 12/23/2024 9:42 AM CDT [facility] NEUTROPHILS 59.9 47.0 - 73.0 % 12/23/2024 9:42 AM CDT [facility] LYMPHOCYTES 31.1 18.0 - 42.0 % 12/23/2024 9:42 AM CDT [facility] MONOCYTES 6.4 4.0 - 12.0 % 12/23/2024 9:42 AM CDT [facility] EOSINOPHILS 2.1 0.0 - 5.0 % 12/23/2024 9:42 AM CDT [facility] BASOPHILS 0.5 0.0 - 1.0 % 12/23/2024 9:42 AM CDT [facility] ABSOLUTE NEUTROPHILS 6.66 1.60 - 7.70 10(3)/mcL 12/23/2024 9:42 AM CDT [facility] ABSOLUTE LYMPHOCYTES 3.45(H) 1.30 - 3.20 10(3)/mcL 12/23/2024 9:42 AM CDT [facility] ABSOLUTE MONOCYTES 0.71 0.20 - 1.00 10(3)/mcL 12/23/2024 9:42 AM CDT [facility] ABSOLUTE EOSINOPHIL 0.23 0.00 - 0.40 10(3)/mcL 12/23/2024 9:42 AM CDT [facility] ABSOLUTE BASOPHILS 0.06 0.00 - 0.10 10(3)/mcL 12/23/2024 9:42 AM CDT [facility] NRBC PER 100 WBC 0 12/24/19 9:42 AM CDT [facility] Blood Venipuncture / Unknown 12/23/2024 8:08 AM CDT 12/23/2024 9:23 AM CDT December N Boubacar MONTESINOS CANE CUTTER HEMATOLOGY ORDERABLES Fin al Result [facility] [place] [address] * THYROXINE (T4) FREE (12/23/2024 8:08 AM CDT) T4 FREE 0.9 0.7 - 1.9 ng/dL 12/23/2024 10:42 AM CDT [facility] Blood Venipuncture / Unknown 12/23/2024 8:08 AM CDT 12/23/2024 9:23 AM CDT december N Boubacar MONTESINOS CANE CUTTER CHEMISTRY ORDERABLES Radhika l Result [facility] [place] [address] * (ABNORMAL) LIPID PANEL (12/23/2024 8:08 AM CDT) CHOLESTEROL 166 <200 mg/dL 12/23/2024 10:25 AM CDT [facility] TRIGLYCERIDES 170(H) <150 mg/dL 12/23/2024 10:25 AM CDT [facility] HDL CHOLESTEROL 43 >40 mg/dL 10:25 AM CDT [facility] LDL 89 <130 mg/dL 12/23/2024 10:25 AM CDT [facility] VLDL 34 10 - 50 mg/dL 12/23/2024 10:25 AM CDT [facility] CHOL/HDL RATIO 3.9 0.0 - 4.4 12/23/2024 10:25 AM CDT [facility] NON-HDL CHOLESTEROL 123 <130 mg/dL 12/23/2024 10:25 AM CDT [facility] IS THE PATIENT REQUIRED TO BE FASTING? Yes 12/23/2024 10:25 AM CDT [facility] HAS THE PATIENT BEEN FASTING? Yes 12/23/2024 10:25 AM CDT [facility] Blood Venipuncture / Unknown 12/23/2024 8:08 AM CDT 12/23/2024 9:23 AM CDT december Oehl POWER TECHNICIAN, CANE CUTTER CHEMISTRY ORDERABLES Radhika l Result [facility] [address] [place] [address] * CMP (COMPREHENSIVE METABOLIC PANEL) (12/23/2024 8:08 AM CDT) SODIUM 137 136 - 145 mmol/L 12/23/2024 10:25 AM CDT [facility] POTASSIUM 4.0 3.5 - 5.1 mmol/L 12/23/2024 10:25 AM CDT [facility] CHLORIDE 107 98 - 107 mmol/L 12/23/2024 10:25 AM CDT [facility] CO2, VENOUS 23 22 - 30 mmol/L 12/23/2024 10:25 AM CDT [facility] ANION GAP 11.0 <18.0 mmol/L 12/23/2024 10:25 AM CDT [facility] GLUCOSE 85 70 - 99 mg/dL 12/23/2024 10:25 AM CDT [facility] BUN 8 5 - 18 mg/dL 12/23/2024 10:25 AM [facility] CREATININE, BLOOD 0.60 0.60 - 1.00 mg/dL 12/23/2024 10:25 AM T [facility] BUN/CREATININE RATIO 13 12 - 20 ratio 12/23/2024 10:25 AM [facility] TOTAL PROTEIN 7.5 6.0 - 8.0 g/dL 12/23/2024 10:25 AM T [facility] ALBUMIN 3.9 3.5 - 5.0 g/dL 12/23/2024 10:25 AM [facility] A/G RATIO 1.1 1.0 - 2.2 12/23/2024 10:25 AM [facility] CALCIUM 9.1 8.7 - 10.5 mg/dL 12/23/2024 10:25 AM [facility] T BILI 0.9 0.2 - 1.2 mg/dL 12/23/2024 10:25 AM [facility] SGOT (AST) 23 <43 U/L 12/23/2024 10:25 AM [facility] SGPT (ALT) 23 <56 U/L 12/23/2024 10:25 AM [facility] ALKALINE PHOSPHATASE 71 40 - 150 U/L 12/23/2024 10:25 AM [facility] IS THE PATIENT REQUIRED TO BE FASTING? No 12/23/2024 10:25 AM [facility] GFR, ESTIMATED >60 >=60 12/23/2024 10:25 AM [facility] Comment: Creatinine Clearance is the preferred criteria for selecting drug dose adjustments in renally impaired patients. The GFR is provided as additional pertinent clinical information. GFR is reported in mL/min/1.73 sq m. Calculation based on the Chronic Kidney Disease Epidemiology Collaboration (CKD- EPI) equation refit without adjustment for race. GFR, EST. >60 >=60 025 10:25 AM [facility] GFR, EST. NONAFRICAN >60 >=60 12/23/2024 10:25 AM CDT [facility] Blood Venipuncture / Unknown 12/23/2024 8:08 AM CDT 12/23/2024 9:23 AM CDT December Boubacar MONTESINOS CNP CHEMISTRY ORDERABLES Radhika l Result [facility] [place] [address] from Last 3 Months Insurance [employer] Care Teams Wigs Salesperson Relationship Specialty Start Date End Date Boubacar December Christ, HANANE MONTESINOS [address] [facility] [address] [address] [address] PCP - General Advanced Practice Nurse 11/20/24
[2025-01-20] MEDS: ACETAMINOPHEN 500 MG TABLET 1000 MG PO (09:15)
[2025-01-20] MEDS: SCOPOLAMINE 1 MG PATCH 1 PATCH TRANSDERM (09:17)
[2025-01-20] MEDS: LACTATED RINGERS 1,000 ML 30 ML IV CONT ×2 (09:20→10:51)
[2025-01-20] MEDS: KETOROLAC 15 MG/ML VIAL (*BKC) IV PUSH (09:22)
[2025-01-20 09:29] LABS: Glucose Point of Care 102 mg/dl (65-105)
--- NOTE | 2025-01-20 09:36 | P.PNAN_ITS ---
Anes - Initial Pre Proc Eval Procedure: Operation Date: 01/20/25 10:30 Proposed Procedures p Laparoscopic Bilateral Salpingectomy - Jake Delvalle MD Date/Time: 01/20/25 09:36 Surgeon: Jake Delvalle MD Pre Op Diagnosis: female sterilization Patient Data Age: 34 Gender: F Height: 1.47 m Weight: 129.5 kg Allergies Allergy/AdvReac Type Severity Reaction Status Date / Time Penicillins Allergy Severe Anaphylactic Verified 01/20/25 08:44 Shock Home Medications Medication Instructions Recorded Confirmed Type lisinopril 20 mg tablet 20 mg PO DAILY 01/07/25 01/20/25 History lisinopril 20 1 tablet PO DAILY 01/07/25 01/20/25 History mg-hydrochlorothiazide 12.5 mg tablet metformin 500 mg tablet,extended 500 mg PO BID 01/07/25 01/20/25 History release 24 hr vitamin E 670 mg (1,000 unit) 670 mg PO DAILY 01/07/25 01/20/25 History capsule Laboratory Tests 01/20/25 09:26 POC Capillary Glucose 102 mg/dl (65-105) Patient hx anesthesia problems: none Family hx anesthesia problems: none Results Review: All pre-operative results and documents have been reviewed as part of the pre-op erative evaluation. [facility] Past Medical History Medical History (Updated 01/20/25 @ 09:36 by Seven Calero MD) Diabetes Morbid obesity HTN (hypertension) Social History Social History Smoking status: Never smoker Living arrangements: with family Spiritual care concerns: No Anes - Eval Final PreProcedure Day of Procedure 01/20/25 09:36 Patient weight: super morbidly obese Heart: regular rate and rhythm Lungs: clear to auscultation Airway: Mallampati scale class II Neurological: alert and oriented Last oral intake: >/= 8 hours ASA classification: III Emergent: no Anesthetic plan: proceed Anesthesia type and monitoring: general ETT and standard monitoring Results Review: All pre-operative results and documents have been reviewed as part of the pre- operative evaluation. Informed Consent: The patient's anesthetic plan and its attendant risks and benefits were d iscussed with the patient/family/POA. Questions were solicited and answers provided to the satisfaction of the patient/family/POA.
--- NOTE | 2025-01-20 09:41 | P.HP_ITS ---
H&P: HPI History of Present Illness Date/Time: 01/20/25 09:41 Chief Complaint: Unwanted fertility Narrative: This patient is a 34-year-old female desires sterilization. We have agreed to perform laparoscopic bilateral salpingectomy. She understands risks, benefits, and alternative. She has completed the informed consent process and is ready to proceed. The patient understands the details of the procedure. The procedure has been explained in detail. She understands the risks. She understands that injuries may occur that result in hospitalization, more surgery, and severe illness. She understands risk of hemorrhage and infection. She denies any chest pain or shortness of breath. She denies any nausea, vomiting, fever, chills. Review of Systems 2 Review of Systems: All systems reviewed & are unremarkable except as noted in HPI and below Constitutional: Constitutional: Denies chills, Denies fatigue, Denies fever(s) and Denies weakness Eyes: Eyes: Denies blurry vision, Denies change in vision, Denies loss of peripheral vision, Denies loss of vision, Denies other visual disturbances and Denies eye pain ENT: Denies vertigo, Denies dizziness, Denies hearing loss, Denies mouth pain, Denies nasal obstruction, Denies neck mass and Denies neck pain Cardiovascular: Cardiovascular: Denies chest pain, Denies diaphoresis, Denies syncope, Denies leg edema and Denies dyspnea Respiratory: Respiratory: Denies chest congestion, Denies cough, Denies hemoptysis, Denies dyspnea and Denies wheezing Gastrointestinal: Gastrointestinal: Denies abdominal pain, Denies constipation, Denies diarrhea, Denies nausea and Denies vomiting Genitourinary: Genitourinary: Denies hematuria, Denies change in libido, Denies nocturia, Denies genital lesions, Denies flank pain and Denies urinary urgency Musculoskeletal: Musculoskeletal: Denies abnormal gait, Denies back pain, Denies myalgias, Denies arthralgias, Denies joint swelling, Denies muscle weakness and Denies neck pain Integumentary/Breasts: Skin/Breast: Denies swelling, Denies breast pain, Denies breast mass, Denies dry skin, Denies nipple discharge, Denies unusual bruising and Denies jaundice Neurologic: Denies Neuro-related abnormal movements, Denies Abnormal speech present, Denies abnormal gait, Denies behavioral changes, Denies confusion, Denies vertigo, Denies dizziness, Denies syncope, Denies loss of vision, Denies memory loss, Denies convulsions and Denies weakness Psychiatric: Psychiatric: Denies abnormal sleep pattern, Denies behavioral changes, Denies change in libido, Denies confusion, Denies depression, Denies anhedonia and Denies memory loss Endocrine: Endocrine: Reports no additional endocrine complaints, Denies change in libido and Denies fatigue Hematologic/Lymphatic: Hematologic/Lymphatic: Reports no additional hematologic/lymphatic complaints Allergic/Immunologic: Allergic/Immunologic: Reports no additional allergic/immunologic complaints and Denies wheezing [facility] Past Medical History Medical History (Updated 01/20/25 @ 09:44 by Jake Delvalle MD) Diabetes Morbid obesity HTN (hypertension) Social History Social History Smoking status: Never smoker Living arrangements: with family Spiritual care concerns: No Meds Home Medications and Allergies Home Medications Medication Instructions Recorded Confirmed Type lisinopril 20 mg tablet 20 mg PO DAILY 01/07/25 01/20/25 History lisinopril 20 1 tablet PO DAILY 01/07/25 01/20/25 History mg-hydrochlorothiazide 12.5 mg tablet metformin 500 mg tablet,extended 500 mg PO BID 01/07/25 01/20/25 History release 24 hr vitamin E 670 mg (1,000 unit) 670 mg PO DAILY 01/07/25 01/20/25 History capsule Allergies Allergy/AdvReac Type Severity Reaction Status Date / Time Penicillins Allergy Severe Anaphylactic Verified 01/20/25 08:44 Shock Exam Const: General: cooperative, healthy appearing, comfortable and no acute dis tress Orientation/consciousness: oriented to person, oriented to place and oriented to time HENMT: Head: normal to inspection Ears: external ears normal Face/Nose/Sinus: Normal external nose present and normal facial exam Face and sinus: normal facial exam Eyes: General: appearance normal, both eyes and all related structures Neck: Neck: normal visual inspection, trachea midline and supple Resp: Auscultation: clear to auscultation bilaterally, no crackles, no rales, no rhonchi and no wheezes Cardio: Rate: regular rate Rhythm: regular rhythm Heart sounds: no clic k, no murmurs and no rubs GI: GI Palp: No abdominal tenderness, No Soft to palpation, No Tenderness to palpation present (GI) and No Palpable mass present Auscultation: normal bowel sounds Skin: General skin exam: normal color and no rashes or lesions noted Neuro: General: oriented to person, oriented to place and oriented to time Extrem: General: normal to inspection, no joint enlargement, no clubbing, cyanosis or edema, no pedal edema and no calf tenderness Psych: Appearance: grossly normal Mental Status: mental status grossly normal Speech and movement: Normal speech and movement present Assessment and Plan Assessment and plan (1) Encounter for female sterilization procedure: Code(s): Z30.2 - Encounter for sterilization Status: Acute Plan This patient is a 34-year-old female desires sterilization. We have agreed to perform laparoscopic bilateral salpingectomy. She understands risks, benefits, and alternative. She has completed the informed consent process and is ready to proceed.
--- NOTE | 2025-01-20 09:45 | WPDHPUPDATE1 ---
History and Physical Update Update Date/Time: 01/20/25 09:45 History and Physical has been reviewed, including an updated exam of the patient. There are NO changes in the patient's condition. Risks, benefits, and alternatives have been discussed and questions answered. Patient agrees to proceed with procedure.
[2025-01-20 10:48] LABS: BEDSIDEPREGUCG Negative (Negative)
--- NOTE | 2025-01-20 10:49 | P.OP_ITS ---
Procedure Note - Detailed Date of Procedure 01/20/25 Pre-op Diagnosis female sterilization Post-op Diagnosis Same Procedure Performed Laparoscopic bilateral salpingectomy Surgeon Jake Delvalle MD Anesthesia General Indications Unwanted fertility Findings Normal pelvic anatomy Description of Procedure The patient was taken the operating room. She was prepped and draped in the dorsal lithotomy position after induction of general anesthesia. A 5 mm skin incision was made in the left upper quadrant of the abdominal skin. A 5 mm trocar was inserted the intra-abdominal cavity under direct visualization of the scope. Pneumoperitoneum was achieved. A 5 mm trocar was inserted in the left lower quadrant identical fashion. A 5 mm infraumbilical trocar was inserted in identical fashion as well. The bilateral fallopian tubes were removed. This was done by using a LigaSure cautery. The mesosalpinx adjacent to the tube was cauterized transected with LigaSure. This was initiated in the area the ovary and in a stepwise fashion moved medially to the area of the cornu of the uterus. Once there the fallopian tube was cauterized and transected. This was done in identical fashion on each side. The fallopian tubes were taken out through the left lower quadrant trocar site. The pneumoperitoneum was reduced. The trocars removed. The skin was closed with subcuticular 4 Monocryl and covered with De rmabond. She was taken to cover stable condition. Sponge lap and needle counts were correct x2. Estimated Blood Loss 5 Drains No Packing No Pathology Yes Complications No immediate complications Condition Stable Disposition PACU
[2025-01-20] MEDS: oxyCODONE HCL (*CRX) 5 MG TAB IR PO (12:39)
--- NOTE | 2025-01-20 13:56 | SUR.PHASEII ---
1200 SLIGHT SWELLING TO LEFT LOWER LIP; NO BLEEDING NOTED.
== END 2025-01-20 12:58 | disposition home or self-care (01) ==
PROVIDERS: Anesthesiology; Visit Provider Obstetrics & Gynecology
PROC: (CPT 49320; principal; 2025-01-20 10:30)
DX: Z30.2 Encounter for sterilization (principal); E11.9 Type 2 diabetes mellitus without complications; I10 Essential (primary) hypertension; E66.01 Morbid (severe) obesity due to excess calories; Z68.43 Body mass index [BMI] 50.0-59.9, adult
CPT/HCPCS: 58661; 82948; 88302; A9270; J1885; J2250; J3010; J7120